=== PATIENT | female | born 1960 | race Caucasian/White ===

== ENCOUNTER → 2018-02-06 | Outpatient (CLI) | payer BC ==
[~2018-02-06] MED LIST: ALLEGRA ALLERG180 MG PO; BLACK COHOSH540 MG PO; BYSTOLIC 5 MG5 M1 PO; CALCIUM 600 +1 EAC1 PO; CINNAMON500 MG PO; COQ-10100 MG PO; CRANBERRY200 MG PO; CRESTOR20 MG PO; ESTRADIOL 1 MG T1 M1 PO; FLONASE 0.05%50 MCG NASAL; PROBIOTIC1 EAC1 PO; PROTONIX40 M1 PO; UNICOMPLEX M TA1 TA1 PO; VICTOZA0.6 MG/0.1 SUBQ; ZANTAC 150MG T150 MG PO; ZOLOFT50 MG PO
--- NOTE | ~2018-02-06 | EKG ---
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
== END | disposition home or self-care (01) ==
LOC: LITH 09:57
DX: N20.0 Calculus of kidney (principal); Z53.8 Procedure and treatment not carried out for other reasons; I10 Essential (primary) hypertension; E78.00 Pure hypercholesterolemia, unspecified; E11.9 Type 2 diabetes mellitus without complications; K21.9 Gastro-esophageal reflux disease without esophagitis; Z87.19 Personal history of other diseases of the digestive system; Z88.2 Allergy status to sulfonamides; Z88.8 Allergy status to other drugs, medicaments and biological substances; Z90.710 Acquired absence of both cervix and uterus; Z98.890 Other specified postprocedural states; Z85.528 Personal history of other malignant neoplasm of kidney
CPT/HCPCS: 50010